=== PATIENT | female | born 1990 | race African-American/Black ===

== ENCOUNTER 2017-07-22 05:15 | Emergency (ER) | payer BC ==
[~2017-07-22] VITALS: Ht 170.2 cm; Wt 73.0 kg
[2017-07-22 05:20] VITALS: Ht 170.2 cm; Wt 73.0 kg
[2017-07-22 06:41] VITALS: BP 113/64
== END 2017-07-22 06:42 | disposition home or self-care (01) ==
LOC: ED 05:15
DX: R07.9 Chest pain, unspecified (principal); R06.02 Shortness of breath; Z88.0 Allergy status to penicillin
CPT/HCPCS: J1885; Q0092